=== PATIENT | male | born 1985 | race Caucasian/White ===

== ENCOUNTER 2016-10-05 11:02 | Outpatient (CLI) | payer MEDICAID | END 2016-10-05 11:03 | DX: I10 Essential (primary) hypertension (principal) ==

== ENCOUNTER 2016-10-24 14:35 | Outpatient (CLI) | payer MEDICAID | END 2016-10-24 14:36 | disposition home or self-care (01) | LOC: SC 14:35 | PROVIDERS: ATTEND Nurse Practitioner Family | DX: G47.30 Sleep apnea, unspecified (principal); G47.8 Other sleep disorders; R53.83 Other fatigue; R06.83 Snoring | CPT/HCPCS: 99203; 99212 ==

== ENCOUNTER 2017-01-31 15:10 | Outpatient (CLI) | payer MEDICAID | END 2017-01-31 15:11 | disposition home or self-care (01) | LOC: SC 15:10 | PROVIDERS: ATTEND Internal Medicine Pulmonary Disease | DX: G47.33 Obstructive sleep apnea (adult) (pediatric) (principal) | CPT/HCPCS: 99212; 99213 ==

== ENCOUNTER 2017-03-14 13:40 | Outpatient (CLI) | payer MEDICAID | END 2017-03-14 13:41 | disposition home or self-care (01) | LOC: SC 13:40 | PROVIDERS: ATTEND Nurse Practitioner Family | DX: G47.33 Obstructive sleep apnea (adult) (pediatric) (principal) | CPT/HCPCS: 99212; 99214 ==

== ENCOUNTER 2017-03-29 15:25 | Outpatient (CLI) | payer MEDICAID | END 2017-03-29 15:26 | disposition home or self-care (01) | LOC: SC 15:25 | PROVIDERS: ATTEND Nurse Practitioner Family | DX: G47.33 Obstructive sleep apnea (adult) (pediatric) (principal) | CPT/HCPCS: 99212; 99214 ==

== ENCOUNTER 2017-05-02 15:03 | Outpatient (CLI) | payer MEDICAID | END 2017-05-02 15:04 | disposition home or self-care (01) | LOC: SC 15:03 | PROVIDERS: ATTEND Nurse Practitioner Family | DX: G47.33 Obstructive sleep apnea (adult) (pediatric) (principal) | CPT/HCPCS: 99212; 99213 ==

== ENCOUNTER 2021-03-16 12:26 | Outpatient (CLI) | payer OTHER ==
[2021-03-16 17:44] LABS: BASOPHILS % (AUTO) 0.4 %; EOSINOPHILS # (AUTO) 0.2 10^3/uL (0.0-0.7); EOSINOPHILS % (AUTO) 2.3 %; HCT - HEMATOCRIT 51.6 % (42.0-52.0); HGB - HEMOGLOBIN 17.5 g/dL (14.0-18.0); LYMPHOCYTES # (AUTO) 2.9 10^3/uL (1.5-3.5); LYMPHOCYTES % (AUTO) 42.1 %; MEAN CORPUSCULAR HEMOGLOBIN 29.7 pg (27.0-31.0); MEAN CORPUSCULAR HGB CONC 33.9 g/dL (32.0-36.0); MEAN CORPUSCULAR VOLUME 87.5 fL (80.0-94.0); MEAN PLATELET VOLUME 11.7 fL (7.4-11.4); MONOCYTES # (AUTO) 0.6 10^3/uL (0.0-1.0); MONOCYTES % (AUTO) 8.5 %; NEUTROPHILS # (AUTO) 3.2 10^3/uL (1.5-6.6); NEUTROPHILS % (AUTO) 46.4 %; PLT - PLATELET COUNT 244 10^3/uL (130-450); RED CELL DISTRIBUTION WIDTH 13.5 % (12.0-15.0); WHITE BLOOD COUNT 6.8 x10^3/uL (4.8-10.8)
[2021-03-16 18:04] LABS: ALBUMIN 4.3 g/dL (3.2-5.5); ALKALINE PHOSPHATASE 66 IU/L (42-121); ALT ALANINE AMINOTRANSFERASE 55 IU/L (10-60); AST ASPARTATE AMINOTRANSFERASE 32 IU/L (10-42); BILIRUBIN,TOTAL 0.5 mg/dL (0.2-1.0); BUN - BLOOD UREA NITROGEN 16 mg/dL (6-20); CALCIUM 9.1 mg/dL (8.5-10.3); CARBON DIOXIDE - CO2 27 mmol/L (21-32); CHLORIDE 104 mmol/L (101-111); CHOL/HDL RATIO 7.8 (<5.0); CHOLESTEROL 266 mg/dL; CREATININE 1.3 mg/dL (0.6-1.2); GFR - MDRD 63 (>89); GLUCOSE 82 mg/dL (70-100); HDL CHOLESTEROL 34 mg/dL; POTASSIUM 3.9 mmol/L (3.5-5.0); SODIUM 139 mmol/L (135-145); TOTAL PROTEIN 8.4 g/dL (6.7-8.2); TRIGLYCERIDES 660 mg/dL
[2021-03-16 18:55] LABS: LDL CHOLESTEROL,DIRECT 134 mg/dL; LDLD/HDL RATIO 3.9 (<3.6)
== END 2021-03-16 12:27 | disposition home or self-care (01) ==
LOC: LAB.N 12:26
PROVIDERS: ATTEND Physician Assistant Medical
DX: I10 Essential (primary) hypertension (principal)
CPT/HCPCS: 36415; 80053; 80061; 83721; 85025

== ENCOUNTER 2024-02-17 13:51 | Emergency (ER) | payer BC, OTHER ==
--- NOTE | 2024-02-17 14:23 | ED Physician Documentation ---
PD HPI FOCAL NEURO - Stated complaint Stated Complaint: NUMB TOUNGE,TIGHT FACIAL FEELING - Chief complaint Chief Complaint: Neuro - History obtained from History obtained from: Patient - Additional information Additional information: 38-year-old gentleman with history of hypertension, noncompliant with losartan. He went to bed last night at 11 PM and awoke this morning feeling like his tongue was numb and with a tight left faced. It is not associated with headache. No other neurologic symptoms such as weakness, numbness, tingling in the hands or feet. He is walking okay. PD PAST MEDICAL HISTORY - Past Medical History Cardiovascular: Hypertension - Past Surgical History Past Surgical History: Yes - Present Medications Home Medications: Ambulatory Orders Medication Instructions Recorded Confirmed buPROPion [Wellbutrin Sr] 100 mg PO DAILY 02/10/17 02/10/17 lisinopriL [Lisinopril] 20 mg PO DAILY 02/10/17 02/10/17 Clindamycin HCl [Clindamycin 300MG 300 mg PO Q6HR 7 Days capsule 02/11/17 CAP] Losartan [Cozaar] 50 mg PO DAILY #90 tablet 02/17/24 Valacyclovir HCl [Valtrex] 1,000 mg PO TID #30 tablet 02/17/24 predniSONE [Deltasone] 20 mg PO [id number] #21 tab 02/17/24 - Allergies Allergies/Adverse Reactions: Allergies Allergy/AdvReac Type Severity Reaction Status Date / Time No Known Drug Allergies Allergy Verified 02/17/24 13:55 - Social History Does the pt smoke?: No Smoking Status: Never smoker Does the pt drink ETOH?: No Does the pt have substance abuse?: No - Immunizations Immunizations are current?: Yes - POLST Patient has POLST: No PD ED PE NORMAL - Vitals Vital signs reviewed: Yes - General General: Alert and oriented X 3, No acute distress - HEENT HEENT: PERRL, EOMI - Neck Neck: Supple, no meningeal sign, No bony TTP - Cardiac Cardiac: RRR, No murmur - Respiratory Respiratory: No respiratory distress, Clear bilaterally - Abdomen Abdomen: Non tender - Neuro Neuro: Alert and oriented X 3, Other (He has a left facial droop, I am vacillating as to whether or not it spares the forehead. Tongue is midline with normal sensation. No herpetic sores anywhere.) Eye Opening: Spontaneous Motor: Obeys Commands Verbal: Oriented GCS Score: 15 Results - Vitals Vitals: Vital Signs - 24 hr 02/17/24 02/17/24 02/17/24 13:55 15:39 16:00 Temperature 36.8 C Heart Rate 88 64 66 Respiratory 18 13 22 Rate Blood Pressure 155/128 H 178/133 H 192/129 H O2 Saturation 97 96 96 02/17/24 02/17/24 02/17/24 16:30 17:43 19:11 Temperature Heart Rate 71 67 75 Respiratory 16 18 18 Rate Blood Pressure 174/123 H 186/137 H 184/125 H O2 Saturation 96 97 97 Oxygen O2 Source Room air - Labs Labs: Laboratory Tests 02/17/24 02/17/24 14:25 14:25 WBC 6.3 RBC 6.33 H Hgb 18.3 H Hct 54.1 H MCV 85.5 MCH 28.9 MCHC 33.8 RDW 13.4 Plt Count 161 MPV 10.6 Neut # (Auto) 3.1 Lymph # (Auto) 2.3 Starr # (Auto) 0.7 Eos # (Auto) 0.1 Baso # (Auto) 0.0 Absolute Nucleated RBC 0.00 Nucleated RBC % 0.0 Sodium 137 Potassium 3.5 Chloride 102 Carbon Dioxide 27 Anion Gap 8.0 BUN 11 Creatinine 1.2 Estimated GFR (MDRD) 68 L Glucose 82 Calcium 10.0 Total Bilirubin 0.6 AST 39 ALT 57 Alkaline Phosphatase 68 Total Protein 8.4 Albumin 4.3 Globulin 4.1 Albumin/Globulin Ratio 1.0 Lipase 26 - Rads (name of study) MRI Brain - NAD Relevant Findings:: Final report received, EMP independent interpretation of test PD Medical Decision Making - ED course ED course: 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 That said I vacillate as to whether or not it spares the forehead, I do not think it does. As such I will obtain MRI imaging. Subsequently MRI imaging was negative. He was noted to have mild polycythemia on labs. This was discussed with him, after further history it is most likely due to known history of RENUKA and noncompliance with CPAP. He also wanted refill of his blood pressure medicines. Departure - Departure Disposition: 01 Home, Self Care Clinical Impression: Polycythemia, Colbert's palsy, Hypertension Condition: Good Record reviewed to determine appropriate education?: Yes Instructions: ED [place] Palsy Prescriptions: Losartan [Cozaar] 50 mg PO DAILY #90 tablet predniSONE [Deltasone] 20 mg PO [id number] #21 tab Valacyclovir HCl [Valtrex] 1,000 mg PO TID #30 tablet Comments: You were seen today for the facial droop and kind of looks like Colbert's palsy but was slightly atypical for that. As such an MRI was done to rule out mass or stroke. And that was negative. On your labs, we noted that your red blood cells are slightly high. The most likely reason for this is if your oxygen levels are dropping while you sleep with your sleep apnea, that would happen. I would encourage you to try to wear your CPAP and/or lose weight as you are already planning to do. The high hemoglobin and hematocrit should be mentioned to your primary care physician follow-up with consideration for hematology oncology referral. [facility] [place]. Forms: PCP List Discharge Date/Time: 02/17/24 19:11
[2024-02-17 14:30] LABS: BASOPHILS % (AUTO) 0.3 %; EOSINOPHILS # (AUTO) 0.1 10^3/uL (0.0-0.7); EOSINOPHILS % (AUTO) 1.6 %; HCT - HEMATOCRIT 54.1 % (42.0-52.0); HGB - HEMOGLOBIN 18.3 g/dL (14.0-18.0); LYMPHOCYTES # (AUTO) 2.3 10^3/uL (1.5-3.5); LYMPHOCYTES % (AUTO) 37.4 %; MEAN CORPUSCULAR HEMOGLOBIN 28.9 pg (27.0-31.0); MEAN CORPUSCULAR HGB CONC 33.8 g/dL (32.0-36.0); MEAN CORPUSCULAR VOLUME 85.5 fL (80.0-94.0); MEAN PLATELET VOLUME 10.6 fL (7.4-11.4); MONOCYTES # (AUTO) 0.7 10^3/uL (0.0-1.0); MONOCYTES % (AUTO) 11.8 %; NEUTROPHILS # (AUTO) 3.1 10^3/uL (1.5-6.6); NEUTROPHILS % (AUTO) 48.7 %; PLT - PLATELET COUNT 161 10^3/uL (130-450); RED BLOOD COUNT 6.33 10^6/uL (4.70-6.10); RED CELL DISTRIBUTION WIDTH 13.4 % (12.0-15.0); WHITE BLOOD COUNT 6.3 x10^3/uL (4.8-10.8)
[2024-02-17 14:43] LABS: ALBUMIN 4.3 g/dL (3.2-5.5); BILIRUBIN,TOTAL 0.6 mg/dL (0.2-1.0); CREATININE 1.2 mg/dL (0.6-1.3); POTASSIUM 3.5 mmol/L (3.5-4.5); TOTAL PROTEIN 8.4 g/dL (6.4-8.9)
[2024-02-17 17:50] VITALS: O2SAT 97
--- NOTE | 2024-02-17 18:37 | MRI Report ---
PROCEDURE: Brain WO INDICATIONS: facial numb TECHNIQUE: Noncontrast axial T1 spin echo, axial T2 fast spin echo, sagittal and axial FLAIR, coronal T2 fast sp in echo, axial gradient echo, axial diffusion and ADC through the brain. COMPARISON: None. FINDINGS: Image quality: Diagnostic. CSF Spaces: Basal cisterns are patent. No extra-axial fluid collections. Ventricles are normal in size and shape. Brain: No intracranial masses or hemorrhage. Huynh/white matter interface is normal. Brainstem appe ars normal. Diffusion-weighted images demonstrate no acute ischemic insult. No chronic ischemic ins ults. Normal intravascular flow voids are present. Skull and face: Calvarium has normal marrow signal. Orbits appear normal. Sinuses: Sinuses and mastoids are clear. IMPRESSION: No acute intracranial abnormality. Reviewed by: Monika Asif MD, PhD on 02/17/2024 6:35 PM PDT Approved by: Monika Asif MD, PhD on 02/17/2024 6:35 PM PDT Station ID: [id number]
[2024-02-17] MEDS: predniSONE 20 MG TABLET PO STA (19:04)
[2024-02-17] MEDS: valACYclovir 500 MG TABLET PO STA (19:04)
[2024-02-17] MEDS: LOSARTAN 50 MG TABLET PO STA (19:04)
[2024-02-17 19:15] VITALS: BP 184/125
== END 2024-02-17 19:11 | disposition home or self-care (01) ==
LOC: ED 13:51
DX: G51.0 Bell's palsy (principal); D75.1 Secondary polycythemia; I10 Essential (primary) hypertension
CPT/HCPCS: 36415; 70551; 80053; 83690; 85025; 99284; A9270; J7512; 84484